=== PATIENT | female | born 1980 | race Caucasian/White ===

== ENCOUNTER 2019-12-13 12:16 | Emergency (ER) | payer OTHER ==
--- NOTE | 2019-12-13 12:34 | EDM.PDOC ---
ED HPI GENERAL MEDICAL PROBLEM - General Chief Complaint: Upper Extremity Injury/Pain Stated Complaint: left wrist pain/deformity Time Seen by Provider: 12/13/19 12:25 Source of Information: Reports: Patient History Limitations: Reports: No Limitations - History of Present Illness INITIAL COMMENTS - FREE TEXT/NARRATIVE: The patient was brought to the emergency room via private automobile by her friend and client for evaluation of a Workmen's Compensation injury, which occurred at about 12:00 p.m. this afternoon. 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 The patient did reduce her own fracture and placed ice packs on the injury site with additional 800 mg of ibuprofen taken shortly after the above injury. She has not injured this arm or wrist in the past. She is right-handed. Some mild paresthesias in her fingers and hand, however no history of fall, neck /back pain, neurological deficits, or other complaints or injuries. No recent history of abdominal pain, heartburn, nausea, diarrhea, melena, gross hematochezia, or any food intolerance, including fatty foods, etc.. The patient also denies any recent fever, cough, wheezing, dyspnea, etc.. Onset: Today, Sudden Onset Date: 12/13/19 Onset Time: 12:00 Duration: Constant Location: Reports: Upper Extremity, Left. 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 Musculoskeletal History: Reports: Fracture, Other (See Below) Other Musculoskeletal History: Multiple previous toes and finger fractures with no surgery required. 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 ED EXAM, GENERAL - Physical Exam Exam: See Below Exam Limited By: No Limitations General Appearance: Alert, WD/WN, No Apparent Distress Head: Atraumatic, Normocephalic Neck: Normal Inspection, Supple, Non-Tender, Full Range of Motion. No: Lymphadenopathy (L), Lymphadenopathy (R), Thyromegaly Respiratory/Chest: No Respiratory Distress, Lungs Clear, Normal Breath Sounds, No Accessory Muscle Use, Chest Non-Tender. No: Pleural Rub, Retractions Cardiovascular: Normal Peripheral Pulses, Regular Rate, Rhythm, No Edema, No Gallop, No JVD, No Murmur, No Rub. No: Gallop/S3, Gallop/S4, Friction Rub Peripheral Pulses: 2+: Radial (L), Radial (R) GI/Abdominal: Normal Bowel Sounds, Soft, Non-Tender, No Organomegaly, No Distention, No Abnormal Bruit, No Mass, Pelvis Stable. No: Guarding (Female) Exam: Deferred Rectal (Female) Exam: Deferred Back Exam: Normal Inspection, Full Range of Motion. No: Muscle Spasm Extremities: Arm Pain (Moderate localized tenderness with mild swelling and ecchymosis over the extensor surface of the distal third of the left forearm with no appreciated clinical deformity, angulation, etc.), Limited Range of Motion (Left forearm secondary to injury with no evidence of wrist, shoulder, elbow, etc. injuries). No: Joint Swelling, Lanette's Sign, Leg Pain, Increased Warmth Neurological: Alert, Oriented, CN II-XII Intact, Normal Cognition, Normal Gait, Normal Reflexes, No Motor/Sensory Deficits Psychiatric: Normal Affect, Normal Mood Skin Exam: Ecchymosis (Mild as above). No: Diaphoretic, Wound/Incision Lymphatic: No Adenopathy ED TRAUMA EXTREMITY PROCEDURES - Splinting Left Upper Extremity Splint Site: Left arm Pre-Procedure NV Status: Normal Post-Procedure NV Status: Normal Splint Material: Other (4 inch padded fiberglass secured with 1 2 inch and additional 4 inch Erwin wrap) Splint Design: Other (Long-arm palmar with wraparound to ulnar gutter) Applied & Form Fitted By: Provider Provider Post-Splint Application NV Check: NV Status Normal, Good Position Complications: No Course - Vital Signs Last Recorded V/S: Last Vital Signs Temp 36.4 C 12/13/19 12:21 Pulse 67 12/13/19 12:21 Resp 14 12/13/19 12:21 BP 98/65 12/13/19 12:21 Pulse Ox 100 12/13/19 12:21 Vital Signs - 24 hr 12/13/19 12:21 Temperature [ 36.4 C Temporal] Pulse, 67 Peripheral [ Right Pulse Oximetry] Respiratory 14 Rate Blood Pressure 98/65 [Right Upper Arm] O2 Sat by Pulse 100 Oximetry - Orders/Labs/Meds Orders: Active Orders 24 hr Category Date Time Status Wrist Comp Min 3V Lt [CR] Stat Exams 12/13/19 12:35 Ordered Obtain Past Medical Record [OM.PC] Routine Oth 12/13/19 12:34 Active Labs: None Meds: None - Radiology Interpretation Free Text/Narrative:: X-rays of the left forearm shows evidence of a mildly displaced comminuted distal third ulnar fracture with no significant angulation with an additional nondisplaced and non-angulated hairline ulnar fracture in the same location with adequate reduction by the patient with no previous x-rays available Departure - Departure Time of Disposition: 13:25 Disposition: Home, Self-Care 01 Condition: Good Clinical Impression: Closed fracture of radius and ulna Qualifiers: Encounter type: initial encounter Laterality: left Qualified Code(s): S52.92XA - Unspecified fracture of left forearm, initial encounter for closed fracture; S52.202A - Unspecified fracture of shaft of left ulna, initial encounter for closed fracture - Discharge Information *PRESCRIPTION DRUG MONITORING PROGRAM REVIEWED*: Not Applicable *COPY OF PRESCRIPTION DRUG MONITORING REPORT IN PATIENT [place]: Not Applicable Instructions: Cast or Splint Care, Adult, [id number], Radial Fracture Referrals: Alanis Catherine MD [Primary Care Provider] - Forms: ED Department Discharge Additional Instructions: 1. Followup with your regular provider in 7 days as directed for reevaluation, repeat x-rays, and probable placement of long arm cast. Bring these discharge instructions with you to that visit. 2. Tylenol 650 mg by mouth every 4 hours and/or OTC ibuprofen 2-3 tabs by mouth every 6 hours with food as directed./needed. You may stagger these medications for 48-72 hours only, which essentially means that you are receiving a pain medication about every 2 hours. 3. Ice packs and arm elevation as discussed 4. Activity restrictions as discussed 5. Immediately after this visit verify that your cellular telephone's voicemail has been activated and is empty. Also verify that your home telephone 's answering machine is operating properly and has space to receive messages. Note that it is sometimes necessary for us to be able to contact you at a later date to discuss your medical care. 6. Please remember that we are ALWAYS here for you and want to answer any questions you may have. Feel free to call the hospital any time and we call you back JONG. Sepsis Event Note - Evaluation Sepsis Screening Result: No Definite Risk - Focused Exam Vital Signs: Vital Signs Temp Pulse Resp BP Pulse Ox 12/13/19 12:21 36.4 C 67 14 98/65 100 Date Exam was Performed: 12/13/19 Time Exam was Performed: 12:40 - Problem List & Annotations (1) Closed fracture of radius and ulna SNOMED Code(s): 32961089 Code(s): S52.90XA - UNSP FRACTURE OF UNSP FOREARM, INIT FOR CLOS FX; S52.209A - UNSP FRACTURE OF SHAFT OF UNSP ULNA, INIT FOR CLOS FX Status: Acute Priority: High Onset Date: 12/13/19 Annotation/Comment:: Workmen's Compensation forms were completed with cast care, activity restrictions, etc. discussed. Patient was placed in a long arm splint as above. She does not need a work excuse by her history. Note that the patient did not take x-rays prior to her self-reduction in the field as above. She was shown the x-rays and is satisfied with this reduction with no further reduction performed in the emergency room. She is also in agreement with no need for a sling at this time. Qualifiers: Encounter type: initial encounter Laterality: left Qualified Code(s): S52.92XA - Unspecified fracture of left forearm, initial encounter for closed fracture; S52.202A - Unspecified fracture of shaft of left ulna, initial encounter for closed fracture - Problem List Review Problem List Initiated/Reviewed/Updated: Yes - My Orders Last 24 Hours: My Active Orders 12/13/19 12:34 Obtain Past Medical Record [OM.PC] Routine 12/13/19 12:35 Wrist Comp Min 3V Lt [CR] Stat - Assessment/Plan Last 24 Hours: My Active Orders 12/13/19 12:34 Obtain Past Medical Record [OM.PC] Routine 12/13/19 12:35 Wrist Comp Min 3V Lt [CR] Stat Assessment:: As above Plan: As above. Extensive precautions were given to the patient, who is in agreement with the treatment plan. See Patient Instructions for further treatment and plan.
== END 2019-12-13 13:29 | disposition home or self-care (01) ==
LOC: LL.ED 12:16 → MERGE 12:16 → LL.ED 13:29
DX: S52.352A Displaced comminuted fracture of shaft of radius, left arm, initial encounter for closed fracture (principal); S52.602A Unspecified fracture of lower end of left ulna, initial encounter for closed fracture; Z88.1 Allergy status to other antibiotic agents; Y99.0 Civilian activity done for income or pay; X58.XXXA Exposure to other specified factors, initial encounter
CPT/HCPCS: 29125; 73110-LT; 99283-25